=== PATIENT | female | born 1985 | race Caucasian/White ===

== ENCOUNTER 2023-06-08 17:43 | Emergency (ER) | payer MEDICAID ==
[~2023-06-08] VITALS: Ht 165.1 cm; Wt 74.8 kg
[2023-06-08 17:59] VITALS: BP 123/70; PULSE 99; RESP 17; TEMP 97.4; O2SAT 98
[2023-06-08 19:40] VITALS: BP 120/80; PULSE 84; RESP 18; TEMP 97.4; O2SAT 99
[2023-06-08] MEDS ORDERED: KETOROLAC 15 MG/ML VIAL IM ONE (20:25)
[2023-06-08] MEDS ORDERED: ACETAMINOPHEN 325 MG TAB PO ONE (20:25)
== END 2023-06-08 21:55 | disposition home or self-care (01) ==
LOC: MED 17:43
DX: M54.50 Low back pain, unspecified (principal)
CPT/HCPCS: 72220; 81025; 96372; 99283; J1885